=== PATIENT | female | born 1975 | race Caucasian/White ===

== ENCOUNTER → 2018-04-08 | Outpatient (CLI) | payer BC | LOC: COL.LAB 18:38 | DX: Z01.812 Encounter for preprocedural laboratory examination (principal); Z86.14 Personal history of Methicillin resistant Staphylococcus aureus infection ==

== ENCOUNTER 2018-04-11 06:00 | Day surgery (SDC) | payer BC ==
[~2018-04-11] VITALS: Ht 165.1 cm; Wt 139.2 kg
[2018-04-11 07:06] VITALS: BP 150/100; PULSE 111; TEMP 97.3
[2018-04-11] MEDS ORDERED: GLUCOPHAGE500 MG/TAB PO (07:15)
[2018-04-11] MEDS ORDERED: ESTRACE2 MG PO (07:17)
[2018-04-11] MEDS ORDERED: LASIX 20MG TABL20 MG PO (07:18)
[2018-04-11] MEDS ORDERED: ALTACE 5MG5 MG PO (07:19)
[2018-04-11] MEDS ORDERED: PROAIR HFA0.09 MG/AC IH (07:19)
[2018-04-11] MEDS ORDERED: CLARITIN 1010 MG/TAB PO (07:19)
[2018-04-11] MEDS ORDERED: SINGULAIR 110 MG/TAB PO (07:20)
[2018-04-11] MEDS ORDERED: MOBIC15 MG PO (07:20)
[2018-04-11] MEDS ORDERED: MULTI VITAMINS1 TAB PO (07:22)
[2018-04-11] MEDS ORDERED: THEO-DUR 3300 MG/TAB PO (07:23)
[2018-04-11] MEDS ORDERED: LYRICA200 MG PO (07:23)
[2018-04-11] MEDS ORDERED: CYMBALTA 60MG60 MG PO (07:24)
[2018-04-11] MEDS ORDERED: ZANTAC 150MG T150 MG PO (07:28)
[2018-04-11 09:02] VITALS: BP 135/70; PULSE 118; TEMP 97.2
[2018-04-11] MEDS ORDERED: NORCO 325 MG-51 TAB PO (09:13)
[2018-04-11 09:17] VITALS: BP 136/74; PULSE 102
[2018-04-11 09:32] VITALS: BP 143/86; PULSE 96
== END 2018-04-11 09:55 | disposition home or self-care (01) ==
LOC: SDCO 06:00
DX: G56.01 Carpal tunnel syndrome, right upper limb (principal); D64.9 Anemia, unspecified; M19.90 Unspecified osteoarthritis, unspecified site; J45.909 Unspecified asthma, uncomplicated; E11.9 Type 2 diabetes mellitus without complications; G43.909 Migraine, unspecified, not intractable, without status migrainosus; K52.9 Noninfective gastroenteritis and colitis, unspecified; Z86.14 Personal history of Methicillin resistant Staphylococcus aureus infection; Z88.0 Allergy status to penicillin; Z79.84 Long term (current) use of oral hypoglycemic drugs; Z91.81 History of falling; Z90.49 Acquired absence of other specified parts of digestive tract; Z90.710 Acquired absence of both cervix and uterus; Z90.722 Acquired absence of ovaries, bilateral; Z82.5 Family history of asthma and other chronic lower respiratory diseases; Z83.3 Family history of diabetes mellitus; Z82.61 Family history of arthritis; Z82.49 Family history of ischemic heart disease and other diseases of the circulatory system
CPT/HCPCS: J0690; J2704; J7030

== ENCOUNTER 2021-08-08 08:43 | Day surgery (SDC) | payer BC ==
[~2021-08-08] VITALS: Ht 167.6 cm; Wt 119.5 kg
[~2021-08-08 08:43] MED LIST: ALTACE 5MG5 MG PO; CLARITIN 1010 MG/TAB PO; CYMBALTA 60MG60 MG PO; ESTRACE2 MG PO; GLUCOPHAGE500 MG/TAB PO; LASIX 20MG TABL20 MG PO; LYRICA200 MG PO; MOBIC15 MG PO; MULTI VITAMINS1 TAB PO; NORCO 325 MG-51 TAB PO; PROAIR HFA0.09 MG/AC IH; SINGULAIR 110 MG/TAB PO; THEO-DUR 3300 MG/TAB PO; ZANTAC 150MG T150 MG PO
[2021-08-08 10:20] VITALS: BP 136/91; PULSE 92; TEMP 97.3
--- NOTE | 2021-08-08 10:33 | NUR ---
Initial visit; Patient thanked [facility] Operator for offering comfort and prayer prior to her 'Procedure.'
[2021-08-08] MEDS ORDERED: LASIX 20MG TABL20 MG PO (10:47)
[2021-08-08] MEDS ORDERED: ESTRACE 1MG1 MG/TAB PO (10:48)
[2021-08-08] MEDS ORDERED: ZEBETA 5MG5 MG PO (10:48)
[2021-08-08] MEDS ORDERED: DESYREL 50MG50 MG PO (10:49)
[2021-08-08] MEDS ORDERED: TYLENOL PM EXTR1 TA1 PO (10:50)
[2021-08-08] MEDS ORDERED: ALTACE 10MG TAB10 MG PO (10:51)
[2021-08-08] MEDS ORDERED: VITAMIN D 50,1.25 MG PO (10:53)
[2021-08-08] MEDS ORDERED: DIFLUCAN150 MG PO (11:19)
[2021-08-08] MEDS ORDERED: NORCO 325 MG-51 TAB PO (11:20)
[2021-08-08 12:00] VITALS: BP 120/64; PULSE 93; TEMP 97.4
--- NOTE | 2021-08-08 12:00 | NUR ---
The patient arrived back to [facility] from the recovery room at this time. The patient appears alert and oriented and reports a headache but minimal pain in her hip. The patient requests to rest before trying anything to eat or drink. Post operative vital signs were started at this time. Dressing appears clean, dry and intact. at bedside. Denies any further needs at this time.
[2021-08-08 12:15] VITALS: BP 128/67; PULSE 94
--- NOTE | 2021-08-08 12:15 | NUR ---
The patient appears to be resting comfortably with her eyes closed at this time. Respirations even and unlabored. Call light remains within reach. Vital signs appear stable.
[2021-08-08 12:30] VITALS: BP 133/73; PULSE 96
--- NOTE | 2021-08-08 12:30 | NUR ---
The patient appears alert at this time and requests to try some apple juice. The patient continues to report having a headache but rates the discomfort in her hip and minimal. Vital signs appear stable. The patient was weaned off oxygen and appears to be tolerating room air well.
[2021-08-08 12:45] VITALS: BP 121/70; PULSE 100
--- NOTE | 2021-08-08 12:45 | NUR ---
The patient has tried her juice and appeared to tolerate it well. The patient requests to get up and get dressed while she tries to use the bathroom.
--- NOTE | 2021-08-08 13:10 | NUR ---
The patient's IV to her right anecubital was removed and a pressure dressing was applied to the site. Discharge instructions were reviewed with the patient and her at this time. They both verbalized understanding and have no questions for the nurse at this time. The patient is dressed and ready to be escorted out.
--- NOTE | 2021-08-08 13:20 | NUR ---
The patient was escorted out via wheelchair to a private vehicle by BRIONNA Chatterjee. The patient's belongings and discharge paperwork were sent with her. The patient's is present to drive her home.
== END 2021-08-08 13:20 | disposition home or self-care (01) ==
LOC: SDCO 08:43
DX: D17.1 Benign lipomatous neoplasm of skin and subcutaneous tissue of trunk (principal); D17.24 Benign lipomatous neoplasm of skin and subcutaneous tissue of left leg
CPT/HCPCS: J1100; J1885; J2250; J2405; J2704; J3010; J7120